=== PATIENT | female | born 1990 | race Caucasian/White ===

== ENCOUNTER 2016-12-04 14:40 | Emergency (ER) | payer OTHER ==
[~2016-12-04 14:40] MED LIST: BACTRIM DS TABL1 TA1 PO; BIRTH CONTROL PILL PO; CELEXA PO; FIORICET W/CODE1 CAP PO; FLEXERIL PO; FLONASE 0.05% N16 G1; LEXAPRO PO; PYRIDIUM PO; REGLAN PO; SLEEPING PILL PO; TRAZODONE PO; VICODIN 5/500 T1 TAB PO; VOLTAREN75 MG PO
== END 2016-12-04 16:59 | disposition home or self-care (01) ==
LOC: CED 14:40
DX: G43.909 Migraine, unspecified, not intractable, without status migrainosus (principal); Z88.0 Allergy status to penicillin; Z91.040 Latex allergy status; Z91.018 Allergy to other foods
CPT/HCPCS: 36415; 96361; 96374; 96375; 99284; J1200; J1885; J2765; J2930

== ENCOUNTER 2016-12-18 22:00 | Emergency (ER) | payer OTHER | END 2016-12-18 22:53 | disposition left against medical advice (07) | LOC: CED 22:00 | DX: Z53.21 Procedure and treatment not carried out due to patient leaving prior to being seen by health care provider (principal) ==

== ENCOUNTER 2016-12-18 23:59 | Emergency (ER) | payer OTHER ==
--- NOTE | ~2016-12-18 | CT4 ---
[facility] A Service of [facility] RADIOLOGY TEXT RESULTS PATIENT: YEIMI SANDS LOCATION: [facility] : 88 UNIT #: [id number] AGE: [address]: Amilcar Mcpherson DO SEX: F ORDER DR: [id number] [facility]. [place], [place] [address] [id number] E MR#: [id number] Acc #: [id number] NAME: YEIMI SANDS : 1990 SEX: F STUDY DATE/TIME: 12/19/2016 1:07 UNIT: [facility] ROOM: STUDY DESCRIPTION: CT Abd and Pelv Wo Cont Attending Physician: Amilcar Mcpherson D.O. Ordering Physician: Amilcar Mcpherson D.O. Primary Care Physician: Preethi Panchal M.D. MEDICAL IMAGING REPORT This report is preliminary unless electronic signature is present EXAM CT abdomen and pelvis without contrast INDICATIONS Migraine headache for 3 days, mid abdomen pain after fall today. Comparison is 04/16/2012. TECHNIQUE Axial 5 mm images were obtained through the abdomen and pelvis without IV or oral contrast. This CT exam was performed with one or more of the following radiation dose reduction techniques: Automatic exposure control, adjustment of mA and/or kV according to patient size, and iterative reconstruction. FINDINGS Lung bases are clear. The liver, spleen, pancreas, adrenal glands and gallbladder are normal. The right kidney is normal. There is a small calcification in the lower pole of the left kidney measuring about 7 mm in diameter; this was not present previously. The aorta is normal in size and there is no adenopathy. The bowel, including the appendix, appears normal. Uterus, adnexal regions and bladder are normal. Bones are unremarkable. IMPRESSION 1. Small, nonobstructing stone versus other benign calcification in the lower pole of the left kidney measuring about 7 mm in diameter. 2. Normal appendix. 3. Otherwise, normal study. Dictated by... Alvino Young M.D. [facility] A Service of [facility] RADIOLOGY TEXT RESULTS PATIENT: YEIMI SANDS LOCATION: [facility] : [birth year] UNIT #: [id number] AGE: [address]: Amilcar Mcpherson DO SEX: F ORDER DR: THIS IS AN ELECTRONICALLY VERIFIED REPORT Alvino Young M.D. at 12/19/2016 2:15 PM RUPINDER/maya TD: 12/19/2016 02:13 JOB #: [id number] MEDICAL IMAGING REPORT Page 1 of 1 COPY
--- NOTE | ~2016-12-18 | CT71 ---
[facility] A Service of [facility] RADIOLOGY TEXT RESULTS PATIENT: YEIMI SANDS LOCATION: [facility] : 89 UNIT #: [id number] AGE: [address]: Amilcar Mcpherson DO SEX: F ORDER DR: [id number] [place] [address] [facility]. [place], [place] [address] [id number] E MR#: [id number] Acc #: [id number] NAME: YEIMI SANDS : 1990 SEX: F STUDY DATE/TIME: 12/19/2016 1:04 UNIT: [facility] ROOM: STUDY DESCRIPTION: CT Head Wo Contrast Attending Physician: Amilcar Mcpherson D.O. Ordering Physician: Amilcar Mcpherson D.O. Primary Care Physician: Preethi Panchal M.D. MEDICAL IMAGING REPORT This report is preliminary unless electronic signature is present EXAM CT scan of the head without contrast INDICATIONS Migraine headache for 3 days. Patient fell today. COMPARISON 09/09/2013 TECHNIQUE Axial noncontrast images were obtained from the skull base to the vertex. This CT exam was performed with one or more of the following radiation dose reduction techniques: Automatic exposure control, adjustment of mA and/or kV according to patient size, and iterative reconstruction. FINDINGS Ventricular size and configuration are normal. There is no evidence of acute infarct or hemorrhage. There are no extraaxial fluid collections. No mass lesion or mass effect is seen. There are no skull fractures. IMPRESSION Normal noncontrast head CT. Dictated by... Alvino Young M.D. THIS IS AN ELECTRONICALLY VERIFIED REPORT Alvino Young M.D. at 12/19/2016 2:15 PM FEL/psc TD: 12/19/2016 02:04 [facility] A Service of [facility] RADIOLOGY TEXT RESULTS PATIENT: YEIMI SANDS LOCATION: [facility] : 89 UNIT #: [id number] AGE: [address]: Amilcar Mcpherson DO SEX: F ORDER DR: JOB #: [id number] MEDICAL IMAGING REPORT Page 1 of 1 COPY
[2016-12-19 00:46] LABS: URINE SOURCE CLEAN CATCH
[2016-12-19 00:57] LABS: URINE APPEARANCE CLOUDY; URINE BILIRUBIN NEG (NEG); URINE BLOOD 3+ (NEG); URINE COLOR YELLOW; URINE GLUCOSE NEG (NEG); URINE KETONE TRACE (NEG); URINE LEUKOCYTE ESTERASE NEG (NEG); URINE NITRATE NEG (NEG); URINE PROTEIN NEG (NEG); URINE SPECIFIC GRAVITY 1.032 (1.003-1.035)
[2016-12-19 00:59] LABS: CULTURE INDICATED? YES; U HYALINE CASTS AUWI 0-2 /[LPF]; URINE BACTERIA AUWI 1+ (NEGATIVE); URINE SQUAMOUS EPITHELIAL CELL FEW /[HPF]
[2016-12-19 01:37] LABS: BASOPHIL# 0.1 X10e3 (0-0.3); BASOPHIL% 0.6 % (0-2.5); EOSINOPHIL# 0.2 X10e3 (0-0.7); EOSINOPHIL% 1.5 % (0.0-7.0); HEMATOCRIT 37.9 % (35.0-45.0); HEMOGLOBIN 12.6 gm/dL (12.0-16.0); LYMPHOCYTE# 2.1 X10e3 (1.0-3.5); LYMPHOCYTE% 20.3 % (17.0-45.0); MEAN CELL VOLUME 92.7 FL (83-96); MEAN CORPUSCULAR HEMOGLOBIN 30.9 PG (28-34); MEAN CORPUSCULAR HGB CONC 33.3 g/dL (30-36); MEAN PLATELET VOLUME 9.9 FL (6.5-11.5); MONOCYTE# 0.6 X10e3 (0-1.0); MONOCYTE% 5.9 % (3.0-12.0); NEUTROPHIL# 7.5 X10e3 (1.5-7.1); NEUTROPHIL% 71.7 % (40-75); PLATELET COUNT 260 X10e3 (140-420); RED BLOOD COUNT 4.09 X10e (3.90-5.30); WHITE BLOOD COUNT 10.5 X10e3 (4.0-10.5)
[2016-12-19 01:40] LABS: DIFF IND NO
[2016-12-19 01:52] LABS: PARTIAL THROMBOPLASTIN TIME 27.8 SECONDS (23.5-31.3); PROTHROMBIN TIME (PATIENT) 10.5 SECONDS (9.6-11.5)
[2016-12-19 02:09] LABS: BILIRUBIN,INDIRECT 0.3 mg/dL (0.0-0.9); BILIRUBIN,TOTAL 0.4 mg/dL (0.2-2.0); BUN/CREATININE RATIO 16.25; CALCIUM SERUM 8.6 mg/dL (8.4-10.2); CREATININE SERUM 0.8 mg/dL (0.6-1.4); GLOM FILT RATE Estimated 101.1 mL/min (>60); POTASSIUM 3.6 mmol/L (3.5-5.1); PROTEIN TOTAL SERUM 7.4 g/dL (6.0-8.3)
[2016-12-19 02:10] LABS: BILIRUBIN, DIRECT 0.1 mg/dL (0.0-0.2)
== END 2016-12-19 02:40 | disposition home or self-care (01) ==
LOC: CED 23:59
PROVIDERS: Emergency Medicine
DX: R51 Headache (principal); R10.9 Unspecified abdominal pain; F31.9 Bipolar disorder, unspecified; Z88.0 Allergy status to penicillin; Z91.040 Latex allergy status; Z91.018 Allergy to other foods
CPT/HCPCS: 36415; 70450; 74176; 80048; 80076; 81003; 83690; 84703; 85025; 85610; 85730; 87086; 96361; 96374; 96375; 99284; J1200; J2765

== ENCOUNTER 2016-12-25 22:52 | Emergency (ER) | payer OTHER | END 2016-12-25 23:30 | disposition home or self-care (01) | LOC: CED 22:52 | DX: G43.909 Migraine, unspecified, not intractable, without status migrainosus (principal); Z88.0 Allergy status to penicillin; Z91.040 Latex allergy status; Z91.018 Allergy to other foods | CPT/HCPCS: 96374; 96375; 99284; J0780; J1100; J1200; J1885 ==

== ENCOUNTER 2017-01-08 23:00 | Emergency (ER) | payer OTHER ==
--- NOTE | ~2017-01-08 | CR230 ---
[facility] A Service of [facility] RADIOLOGY TEXT RESULTS PATIENT: YEIMI SANDS LOCATION: [facility] : 89 UNIT #: [id number] AGE: [address]: TROY GARRETT APRN SEX: F ORDER DR: [id number] [facility] [address] [facility]. [place], [place] [address] [id number] E MR#: [id number] Acc #: [id number] NAME: YEIMI SANDS : 1990 SEX: F STUDY DATE/TIME: 01/09/2017 1:21 UNIT: [facility] ROOM: STUDY DESCRIPTION: CR Shoulder Min 2 View Rt Attending Physician: Troy Garrett Aprn Ordering Physician: Troy Garrett Aprn Primary Care Physician: Preethi Panchal M.D. MEDICAL IMAGING REPORT This report is preliminary unless electronic signature is present EXAM Right shoulder, 3 views HISTORY Right shoulder pain since yesterday, injured moving patient at job. FINDINGS AP view with internal and external rotation of the shoulder girdle shows satisfactory relationship of the humeral head and glenoid fossa. The joint space is normal. There is no identifiable fracture or dislocation or bony destructive process about the shoulder girdle anatomy. The acromioclavicular joint is normal. There is no radiopaque foreign body in the region. IMPRESSION Normal shoulder. Dictated by... Amrit Marroquin M.D. THIS IS AN ELECTRONICALLY VERIFIED REPORT Amrit Marroquin M.D. at 01/09/2017 10:06 PM CORA/myriam TD: 01/09/2017 03:10 JOB #: [id number] MEDICAL IMAGING REPORT Page 1 of 1 COPY
== END 2017-01-09 02:10 | disposition home or self-care (01) ==
LOC: CED 23:00
DX: M25.511 Pain in right shoulder (principal); G43.909 Migraine, unspecified, not intractable, without status migrainosus; G31.9 Degenerative disease of nervous system, unspecified; Z88.0 Allergy status to penicillin; Z91.040 Latex allergy status; Z91.018 Allergy to other foods
CPT/HCPCS: 73030; 96372; 99283; J1885

== ENCOUNTER 2017-01-23 22:36 | Emergency (ER) | payer OTHER ==
[2017-01-24 02:25] LABS: URINE SOURCE CLEAN CATCH
[2017-01-24 02:28] LABS: URINE APPEARANCE CLOUDY; URINE BILIRUBIN NEG (NEG); URINE BLOOD 3+ (NEG); URINE COLOR YELLOW; URINE GLUCOSE NEG (NEG); URINE KETONE NEG (NEG); URINE LEUKOCYTE ESTERASE NEG (NEG); URINE NITRATE NEG (NEG); URINE PH 6.5 (5-8); URINE PROTEIN NEG (NEG); URINE SPECIFIC GRAVITY 1.022 (1.003-1.035)
[2017-01-24 02:31] LABS: CULTURE INDICATED? YES; URINE BACTERIA AUWI 2+ (NEGATIVE); URINE SQUAMOUS EPITHELIAL CELL FEW /[HPF]
== END 2017-01-24 03:30 | disposition home or self-care (01) ==
LOC: CED 22:36
PROVIDERS: Nurse Practitioner
DX: R51 Headache (principal); R50.9 Fever, unspecified; R11.0 Nausea; F31.9 Bipolar disorder, unspecified; J30.2 Other seasonal allergic rhinitis; Z96.22 Myringotomy tube(s) status; Z79.899 Other long term (current) drug therapy; Z88.0 Allergy status to penicillin
CPT/HCPCS: 81003; 84703; 87086; 96361; 96374; 96375; 99284; J1200; J1885; J2765

== ENCOUNTER 2017-02-04 18:25 | Emergency (ER) | payer OTHER | END 2017-02-04 20:13 | disposition home or self-care (01) | LOC: CED 18:25 → CFTX 18:25 | DX: S46.911A Strain of unspecified muscle, fascia and tendon at shoulder and upper arm level, right arm, initial encounter (principal); G43.909 Migraine, unspecified, not intractable, without status migrainosus; F31.9 Bipolar disorder, unspecified; Z88.0 Allergy status to penicillin; Z91.040 Latex allergy status; Z91.018 Allergy to other foods; X50.9XXA Other and unspecified overexertion or strenuous movements or postures, initial encounter; Y92.69 Other specified industrial and construction area as the place of occurrence of the external cause; Y99.0 Civilian activity done for income or pay | CPT/HCPCS: 99283 ==

== ENCOUNTER 2017-04-14 22:32 | Emergency (ER) | payer OTHER ==
[~2017-04-14] VITALS: Ht 170.2 cm; Wt 108.9 kg
== END 2017-04-15 00:05 | disposition left against medical advice (07) ==
LOC: CED 22:32
DX: Z53.21 Procedure and treatment not carried out due to patient leaving prior to being seen by health care provider (principal)

== ENCOUNTER → 2017-04-18 | Outpatient (CLI) | payer OTHER ==
--- NOTE | ~2017-04-18 | MR32 ---
[facility] A Service [facility] RADIOLOGY TEXT RESULTS PATIENT: YEIMI SANDS [facility] : 89 UNIT #: [id number] AGE: [address]: Jason Mckeon MD SEX: F ORDER DR: [id number] [address] [place], [place] [address] [id number] O MR#: [id number] Acc #: [id number] NAME: YEIMI SANDS : 1990 SEX: F STUDY DATE/TIME: 04/18/2017 19:49 UNIT: [facility] ROOM: STUDY DESCRIPTION: MR Cervical Wo Contrast Attending Physician: Jason Mckeon M.D. Referring Physician: Jason Mckeon M.D. Ordering Physician: Jason Mckeon M.D. Primary Care Physician: Rosalinda Gallardo Dentist/Owner [facility] REPORT This report is preliminary unless electronic signature is present. EXAM MRI of the cervical spine without contrast dated 04/18/2017. COMPARISON CT cervical spine without contrast dated 09/09/2013. HISTORY The patient was injured in December 2016 while moving a patient at [place]. Right shoulder pain which extends into the right upper arm. The patient heard a pop with difficulty moving backwards. Neck pain with occasional numbness in the right arm. FINDINGS Multisequence multiplanar imaging of the cervical spine was obtained without contrast. There is reversal of normal cervical curvature. Vertebral body height and alignment are preserved. Mild degenerative signal loss is noted from C2-3 to C5-6. No focal disc herniation, canal stenosis or neural foraminal narrowing is seen. Cord demonstrates normal course, caliber and signal. Pre and paravertebral soft tissues are grossly unremarkable. IMPRESSION 1. Mild degenerative signal loss is noted from C2-3 to C5-6 without any focal significant disc herniation, canal stenosis or neural foraminal narrowing. 2. Cord is within normal limits. Dictated by... Wali Baltazar M.D. [facility] A Service [facility] RADIOLOGY TEXT RESULTS PATIENT: YEIMI SANDS LOCATION: [facility] : 88 UNIT #: [id number] AGE: [address]: Jason Mckeon MD SEX: F ORDER DR: THIS IS AN ELECTRONICALLY VERIFIED REPORT Wali Baltazar M.D. at 04/22/2017 11:39 AM CPR/bd TD: 04/21/2017 12:56 JOB #: [id number] [facility] REPORT Page 1 of 1 COPY
--- NOTE | ~2017-04-18 | MR165 ---
[facility] A Service of [facility] RADIOLOGY TEXT RESULTS PATIENT: YEIMI SANDS LOCATION: [facility] : 88 UNIT #: [id number] AGE: [address]: Jason Mckeon MD SEX: F ORDER DR: [id number] [address] [place], [place] [address] [id number] O MR#: [id number] Acc #: [id number] NAME: YEIMI SANDS : 1990 SEX: F STUDY DATE/TIME: 04/18/2017 20:20 UNIT: [facility] ROOM: STUDY DESCRIPTION: MR Shoulder Wo Contrast Rt Attending Physician: Jason Mckeon M.D. Referring Physician: Jason Mckeon M.D. Ordering Physician: Jason Mckeon M.D. Primary Care Physician: Rosalinda Gallardo Middle Card Tender [facility] REPORT This report is preliminary unless electronic signature is present. EXAM MRI right shoulder 04/18/2017 COMPARISON Right shoulder radiographs, 01/09/2017. HISTORY Order states right shoulder strain. History sheet states injured in December of 2016 while moving a patient at [employer]. Right shoulder pain extends into the arm. [place] a pop. Difficulty in moving arm backwards. Neck pain with occasional right arm numbness. No related surgery. FINDINGS The AC joint demonstrates minimal capsular ligamentous thickening. There is no evidence of recent AC joint injury. Coracoacromial and coracoclavicular ligaments are intact. The rotator cuff muscle tendon complex is normal. Subacromial/subdeltoid bursa demonstrates very minimal nonspecific inflammation. Biceps anchor, biceps tendon, and glenoid labrum are normal. Glenohumeral joint is normal. There is no visible capsular inflammation. There is no marrow lesion, fracture, or muscle abnormality. IMPRESSION 1. Minimal AC joint capsuloligamentous thickening is nonspecific. 2. Minimal nonspecific subacromial/subdeltoid bursal inflammation. 3. The exam is otherwise normal. No acute abnormality is noted. [facility] A Service of [facility] RADIOLOGY TEXT RESULTS PATIENT: YEIMI SANDS LOCATION: [facility] : 88 UNIT #: [id number] AGE: [address]: Jason Mckeon MD SEX: F ORDER DR: Dictated by... Viji Skinner M.D. THIS IS AN ELECTRONICALLY VERIFIED REPORT Viji Skinner M.D. at 04/21/2017 1:37 PM NATALIOC/christi TD: 04/21/2017 12:18 JOB #: [id number] [facility] REPORT Page 1 of 1 COPY
== END | disposition home or self-care (01) ==
LOC: CMRI 18:11
DX: M54.2 Cervicalgia (principal); S46.911A Strain of unspecified muscle, fascia and tendon at shoulder and upper arm level, right arm, initial encounter; M50.31 Other cervical disc degeneration, high cervical region; M50.322 Other cervical disc degeneration at C5-C6 level
CPT/HCPCS: 72141; 73221

== ENCOUNTER 2017-04-28 22:02 | Emergency (ER) | payer OTHER ==
[~2017-04-28] VITALS: Ht 170.2 cm; Wt 108.9 kg
== END 2017-04-29 02:00 | disposition home or self-care (01) ==
LOC: CED 22:02
DX: G44.219 Episodic tension-type headache, not intractable (principal); G44.229 Chronic tension-type headache, not intractable; Z88.0 Allergy status to penicillin; Z91.040 Latex allergy status; Z88.8 Allergy status to other drugs, medicaments and biological substances
CPT/HCPCS: 96374; 96375; 99284; J1200; J1885; J2765